=== PATIENT | male | born 1980 | race African-American/Black ===

== ENCOUNTER 2017-06-26 10:17 | Emergency (ER) | payer MEDICAID, OTHER ==
[2017-06-26 10:22] VITALS: RESP 16
--- NOTE | 2017-06-26 10:37 | EDPHY ---
General - History Smoking Status: Current every day smoker Time Seen by Provider: 06/26/17 10:25 Narrative: CHIEF COMPLAINT: Fever, body aches, "bone pain" HISTORY OF PRESENT ILLNESS: Patient presents with complaints of 4-5 days history of fever. This is associated with cough, sore throat, body aches, headache. Symptoms wax and wane with the increase of his temperature. He is receiving ibuprofen and Tylenol at the [facility] as he is currently incarcerated. The symptoms do improve with this. He has no chest pain. No neck pain or stiffness. Symptoms have changed to more of "a bone pain." As he describes myalgia malaise. He has no urinary complaints or abdominal pain. No rash or lesion. No altered mentation per the officer at bedside. No other associated complaints or modifying factors. REVIEW OF SYSTEMS: Ten systems reviewed and are negative unless otherwise noted in the HPI PCP: None SPECIALISTS: None PAST MEDICAL HISTORY: Denies PAST SURGICAL HISTORY: No recent surgeries SOCIAL HISTORY: Smokes cigarettes. Endorses previous use of multiple illicit substances. Denies any within the past 2 weeks. Currently in custody of [facility] FAMILY HISTORY: Noncontributory EXAMINATION General Appearance: Alert, no distress, lying prone Head: normocephalic, atraumatic Eyes: Pupils equal and round, no conjunctival pallor or injection ENT, Mouth: Mucous membranes moist. Airway patent. There is no erythema or edema. No exudate Neck: Normal inspection, supple, non-tender. No meningeal signs. Respiratory: Lungs are clear to auscultation. No wheezing, rhonchi or crackles Cardiovascular: Regular rate and rhythm. No murmur. Good signs of perfusion Gastrointestinal: Abdomen is soft and nontender Back: non-tender, no bony abnormalities Neurological: GCS 15. A&O, nonfocal. Strength symmetric in all 4 limbs Skin: Warm and dry, no rash no petechiae or purpura Extremities: Nontender, no pedal edema Psychiatric: Mood and affect normal DIFFERENTIAL DIAGNOSES: Including but not limited to influenza, RSV, viral etiology, pneumonia, meningitis, sepsis, fever unknown origin MDM: 10:30 a.m. 3-4 days of flu-like symptoms including cough, headache, body aches, sore throat , runny nose, malaise and fever. Symptoms have been intermittently present but never fully go away. They wax and wane with an increasing subjective fever. He has been receiving ibuprofen while incarcerated with some improvement of the fever but minimal improvement of the symptoms. He had a reportedly negative flu test performed there. No other workup performed. His exam is unremarkable and is consistent with viral illness. He has no meningismus or nuchal rigidity. His lungs are clear. Vital signs are within normal limits at triage. He had ibuprofen 2 hr ago. I have ordered influenza test, RSV test and rapid strep test. I have also ordered a chest x-ray. He is resting comfortably in no acute distress. 11:30 a.m. Influenza, RSV, rapid strep test are all negative. His chest x-ray is unremarkable. I reviewed the case with Dr. Perry, and he had previously discussed the case with the physician for the [facility]'s [facility]. At this point this is possibly a fever of unknown origin, with high suspicion for virus given the patient's history of present illness and physical exam. His vital signs were well within normal limits here with no fever or tachycardia. He is not tachypneic or hypoxemic. Dr. Perry and I agree that we will obtain blood cultures and a full respiratory pathogen panel from the patient at this time. 12:00 p.m. I have re-evaluated the patient and discussed this plan with the patient and the officer at bedside. We discussed that the blood cultures will be drawn as well as the respiratory pathogen panel, which will be performed on the swab this starting the laboratory. He will be discharged at this time back to their custody. We informed them that they will be contacted should the be a positive result from the pending laboratory studies. The they have ED precautions for worsening symptoms, neck pain or stiffness or chest pain. They have instructions to continue ibuprofen and Tylenol as documented. He is in no acute distress with normal vital signs and discharged in stable condition. Addendum 5:20 p.m. Patient's RPP has returned positive for rhinovirus/enterovirus. This does match his clinical picture. ED truck technician will contact the [facility] nurse to notify them of this. Blood cultures are pending. SUPERVISION: Patient was independently examined, but I discussed the case with my secondary supervising physician Dr. Perry ([facility]) Medical Decision Making: I have reviewed this patient with Bishnu, I have examined the patient, I spoke to Dr. Barragan at the [facility] who is this patient's physician. This patient has had fever of essentially unknown origin for several days. He just feels body aches and has a bit of an upper respiratory cough and congestion. He has flu swab negative, RSV negative, chest x-ray is negative, strep is negative. This patient most likely has a viral syndrome of unknown origin. We will continue to treat him symptomatically and sent him back to the [facility]. Additionally, we have run respiratory pathogen and blood cultures. His chest x- ray is also unremarkable. (Julio César Perry) - Diagnostics Imaging Results: Imaging Impressions Chest X-Ray 06/26/17 10:37 IMPRESSION: No evidence for acute cardiopulmonary abnormality. - Objective Vital Signs: Initial Vital Signs Temperature (C) 99.0 F 06/26/17 10:19 Heart Rate 87 06/26/17 10:19 Respiratory Rate 16 06/26/17 10:19 Blood Pressure 125/76 H 06/26/17 10:19 O2 Sat (%) 96 06/26/17 10:19 O2 Delivery Mode Room Air Allergies/Adverse Reactions: Penicillins Allergy (Severe, Verified 09/10/15 16:35) Anaphylaxis Home Medications: Medication Instructions Recorded Cyclobenzaprine [Flexeril 10 MG 10 mg PO HS PRN 09/10/15 (*)] buPROPion SR [Wellbutrin 150mg SR 150 mg PO BID 09/10/15 (*)] Ibuprofen [Ibuprofen Ib] 400 mg PO TID #0 tablet 09/11/15 Laboratory Results: 06/26/17 06/26/17 06/26/17 Unknown 10:37 10:20 Nasal Influenza A PCR NEGATIVE FOR FLU A (NEGATIVE) Nasal Influenza B PCR NEGATIVE FOR FLU B (NEGATIVE) RSV (PCR) NEGATIVE FOR RSV (NEGATIVE) Group A Strep Screen NEGATIVE (NEGATIVE) Group A Strep DNA Pending Microbiology Results: MICROBIOLOGY 06/26/17 10:20 Nasal, Sinus - Swab Respiratory Panel (PCR) - Final Human Rhinovirus/Enterovirus Departure - Departure Disposition: Law Enforcement/Court/Long-Term Clinical Impression: Respiratory infection due to enterovirus 68 Fever Qualifiers: Fever type: unspecified Qualified Code(s): R50.9 - Fever, unspecified Condition: Good Instructions: Acetaminophen (By mouth), Ibuprofen (By mouth), Fever in Adults ( ED) Additional Instructions: 1. Ibuprofen 400-600 mg every 6-8 hours for the next 5-7 days 2. Tylenol 650-1000 mg every 6 hr for the next 5-7 days 3. You had blood cultures drawn in this emergency department. We will contact the [facility] RN if he has returned positive 4. There is a pending respiratory pathogen panel that we will contact the [facility] RN with if anything returns positive 5. Return to emergency department for persistent fever or refractory to medications, neck pain or stiffness, chest pain or abdominal complaints Referrals: NONE *PRIMARY CARE P,. [Primary Care Provider] - As per Instructions
[2017-06-26 12:18] VITALS: BP 122/77; PULSE 77; TEMP 97.7; O2SAT 98
== END 2017-06-26 12:16 ==
LOC: EEVIPCON 10:17
DX: J98.8 Other specified respiratory disorders (principal); F17.210 Nicotine dependence, cigarettes, uncomplicated; B97.19 Other enterovirus as the cause of diseases classified elsewhere